=== PATIENT | female | born 1930 | race Caucasian/White ===

== ENCOUNTER 2017-08-07 11:43 | Emergency (ER) | payer MEDICARE ==
[2017-08-07] MEDS ORDERED: traMADol HCl 50 MG TAB ONE (12:09)
[2017-08-07] MEDS ORDERED: Ibuprofen 800 MG TAB ONE (12:09)
[2017-08-07 12:39] LABS: #Basophils 0.1 thou/uL (0.0-0.2); #Lymphocytes 0.9 thou/uL (1.20-3.40); #Monocytes 1.2 thou/uL (0.11-0.59); #Neutrophils 7.7 thou/uL (1.40-6.50); %Basophils 1.1 % (0.0-1.0); %Eosinophils 0.2 % (0.0-10.0); %Lymphocytes 9.2 % (21.0-51.0); %Monocytes 11.9 % (0.0-10.0); %Neutrophils 77.6 % (42.0-75.0); Hemoglobin 16.1 g/dL (12.0-16.0); Mean Corpuscular HGB CONC 34.5 g/dL (32.0-36.0); Mean Corpuscular Hemoglobin 32.1 pg (27.0-31.0); Mean Corpuscular Volume 93.1 fl (81.0-99.0); Mean Platelet Volume 7.2 fL (7.4-10.4); Platelet Count 206 thou/uL (130-400); RBC Distribution Width 11.5 % (11.5-14.5); White Blood Cell (WBC) Count 9.9 thou/uL (4.8-10.8)
--- NOTE | 2017-08-07 12:54 | RAD ---
FOUR VIEWS OF THE LEFT KNEE: INDICATION: Left knee pain. COMPARISON: None. FINDINGS: There is advanced osteoarthrosis of the left knee. There is moderate to prominent joint capsular ext ension. There are moderate marginal osteophytes seen off of the major compartment of the left knee. There is chondrocalcinosis seen within the medial femorotibial joint compartment. IMPRESSION: Severe osteoarthrosis left knee. No definite acute fracture or subluxation. Joint capsular distention. POS: [facility]
== END 2017-08-07 13:07 | disposition home or self-care (01) ==
LOC: BURERS 11:43
DX: M17.12 Unilateral primary osteoarthritis, left knee (principal)
CPT/HCPCS: 36415; 84550; 85025; 94760

== ENCOUNTER 2018-01-09 19:49 | Emergency (ER) | payer MEDICARE ==
[2018-01-09] MEDS ORDERED: Amoxicillin/Potassium Clav 875 MG TAB ONE (20:27)
[2018-01-09] MEDS ORDERED: Adacel (T-DAP) 0.5 ML VIAL ONE (20:27)
== END 2018-01-09 21:15 | disposition home or self-care (01) ==
LOC: BURERS 19:49
DX: S61.452A Open bite of left hand, initial encounter (principal); Z23 Encounter for immunization; W55.51XA Bitten by raccoon, initial encounter
CPT/HCPCS: 90471; 90715

== ENCOUNTER 2019-02-16 11:46 | Outpatient (CLI) | payer MEDICARE ==
--- NOTE | 2019-02-16 17:03 | RAD ---
LUMBAR SPINE THREE VIEWS: 02/16/19 The bones are osteopenic. There is severe degenerative change throughout the lumbar spine. Degenerate d discs are particularly prominent at L2-L3, L4-L5, and L5-S1. Anterolisthesis of L3 on L4 is probabl y due to facet arthritis. No gross fracture was indicated, though the superior end plate of L2 is beg inning to become more concave. Mild degenerative changes are seen in the lower thoracic spine. The SI joints are symmetrical. 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 POS: HOME
--- NOTE | 2019-02-16 17:07 | RAD ---
LEFT HIP TWO VIEWS 02/16/19 No fracture, dislocation, or bony destructive lesion was seen. Degenerative changes are present but relatively mild. IMPRESSION: No acute findings POS: HOME
== END 2019-02-16 11:47 | disposition home or self-care (01) ==
LOC: BURRAD 11:46
PROVIDERS: ATTEND Nurse Practitioner Family
DX: M51.16 Intervertebral disc disorders with radiculopathy, lumbar region (principal); M51.37 Other intervertebral disc degeneration, lumbosacral region; M46.96 Unspecified inflammatory spondylopathy, lumbar region
CPT/HCPCS: 72100

== ENCOUNTER 2022-02-21 01:59 | Outpatient (CLI) | payer MEDICARE ==
[2022-02-21 03:01] LABS: Bilirubin Negative (Negative); Blood, Urine Moderate (Negative); Clarity Cloudy (Clear); Glucose, Urine (Dipstick) Negative (Negative); Ketone, Urine Negative (Negative); Leukocyte Small (Negative); Nitrite Positive (Negative); Protein, Urine (Dipstick) 100 mg/dL (Neg-Trace); Urobilinogen 0.2 mg/dL (Less than 2)
[2022-02-21 03:11] LABS: Bacteria/HPF 3+ HPF (None Seen); Mucous/LPF 1+ LPF (<2+)
== END 2022-02-21 02:00 | disposition home or self-care (01) ==
LOC: BURMANOR 01:59
PROVIDERS: ATTEND Family Medicine
DX: N39.0 Urinary tract infection, site not specified (principal)
CPT/HCPCS: 81003; 81015; 87077; 87086; 87186

== ENCOUNTER 2022-03-10 15:56 | Outpatient (CLI) | payer MEDICARE ==
[2022-03-10 16:54] LABS: Bilirubin Negative (Negative); Blood, Urine Moderate (Negative); Clarity Cloudy (Clear); Glucose, Urine (Dipstick) Negative (Negative); Ketone, Urine Negative (Negative); Leukocyte Moderate (Negative); Nitrite Positive (Negative); Protein, Urine (Dipstick) 30 mg/dL (Neg-Trace); Specific Gravity, Urine 1.025 (1.005-1.030); Urobilinogen 0.2 mg/dL (Less than 2); pH, Urine 6.5 (5.0-9.0)
[2022-03-10 17:02] LABS: Bacteria/HPF 4+ HPF (None Seen); Squamous Epithelial None Seen HPF (0-3); WBC/HPF Greater Than 50 HPF (0-3)
[2022-03-10 17:03] LABS: Calcium Oxalate Crystals Rare HPF (None Seen); Urine Culture Reflex Yes Yes
== END 2022-03-10 15:57 | disposition home or self-care (01) ==
LOC: BURRAD 15:56
PROVIDERS: ATTEND Nurse Practitioner Family
DX: R11.10 Vomiting, unspecified (principal); K80.20 Calculus of gallbladder without cholecystitis without obstruction; K59.00 Constipation, unspecified; R91.8 Other nonspecific abnormal finding of lung field
CPT/HCPCS: 74018; 81001; 87077; 87086; 87186